=== PATIENT | male | born 1960 | race Caucasian/White ===

== ENCOUNTER 2017-10-08 09:44 | Emergency (ER) | payer OTHER ==
[2017-10-08 10:11] VITALS: BP 137/94
--- NOTE | 2017-10-08 11:56 | UC ---
Skin Complaint HPI - HPI Summary HPI Summary: diffusely spread honey draining rash on back thighs and upper lip. has had similar in the past treated with clindamycin with effect - History of Current Complaint Hx Obtained From: Patient Onset/Duration: Sudden Onset Onset Severity: Moderate Current Severity: Moderate Pain Intensity: 0 Location: Diffuse Character: Redness Aggravating Factor(s): Nothing Alleviating Factor(s): Nothing Associated Signs & Symptoms: Positive: Rash <Brea Lucero - Last Filed: 10/23/17 15:05> <Jena Wallace - Last Filed: 10/23/17 18:14> - History of Current Complaint Chief Complaint: UCRash Time Seen by Provider: 10/08/17 11:44 Stated Complaint: RASH - Allergy/Home Medications Allergies/Adverse Reactions: Allergies Allergy/AdvReac Type Severity Reaction Status Date / Time bee venom protein (honey bee) Allergy Hives Verified 10/08/17 10:11 HAYFEVER Allergy Mild Congestion Uncoded 08/22/15 11:03 Home Medications: Home Medications Asthmanex 2 puff INH DAILY 10/08/17 [History] Dulaglutide [Trulicity] 1 inj .SEE ORDER 10/08/17 [History] Review of Systems Constitutional: Negative Skin: Rash Eyes: Negative ENT: Negative Respiratory: Negative Cardiovascular: Negative Gastrointestinal: Negative Genitourinary: Negative Motor: Negative Neurovascular: Negative Musculoskeletal: Negative Neurological: Negative Psychological: Negative Is Patient Immunocompromised?: No All Other Systems Reviewed And Are Negative: Yes <Brea Lucero - Last Filed: 10/23/17 15:05> PMH/Surg Hx/FS Hx/Imm Hx Previously Healthy: No Endocrine History: Diabetes Cardiovascular History: Hypertension GI/ History: Gastroesophageal Reflux - Surgical History Surgical History: Yes Surgery Procedure, Year, and Place: Bilateral rotator cuff repair 1996/1999/ hernia repair x 2 - Family History Family History: NON CONTRIBUTORY - Social History Occupation: Employed Full-time Lives: With Family Alcohol Use: None Substance Use Type: None Smoking Status (MU): Never Smoked Tobacco - Immunization History Most Recent Tetanus Shot: UTD <Brea Lucero - Last Filed: 10/23/17 15:05> Physical Exam Triage Information Reviewed: Yes Appearance: Well-Appearing, No Pain Distress, Well-Nourished Vital Signs: Initial Vital Signs Temp 97.4 F 10/08/17 10:08 Pulse 81 10/08/17 10:08 Resp 18 10/08/17 10:08 BP 137/94 10/08/17 10:08 Pulse Ox 96 10/08/17 10:08 Vital Signs Reviewed: Yes Eye Exam: Normal Eyes: Positive: Conjunctiva Clear ENT Exam: Normal ENT: Positive: Normal ENT inspection, Hearing grossly normal. Negative: Trismus , Muffled voice, Hoarse voice, Dental tenderness, Sinus tenderness Dental Exam: Normal Neck exam: Normal Neck: Positive: Supple, Nontender Respiratory Exam: Normal Respiratory: Positive: Chest non-tender, No respiratory distress, No accessory muscle use Cardiovascular Exam: Normal Cardiovascular: Positive: RRR, No Murmur, Brisk Capillary Refill Musculoskeletal Exam: Normal Musculoskeletal: Positive: Strength Intact, ROM Intact, No Edema Neurological Exam: Normal Neurological: Positive: Alert, Muscle Tone Normal Psychological Exam: Normal Skin: Positive: rashes, Other - crusty yellow rash <Brea Lucero - Last Filed: 10/23/17 15:05> Vital Signs: Initial Vital Signs Temp 97.4 F 10/08/17 10:08 Pulse 81 10/08/17 10:08 Resp 18 10/08/17 10:08 BP 137/94 10/08/17 10:08 Pulse Ox 96 10/08/17 10:08 <Jena Wallace - Last Filed: 10/23/17 18:14> Course/Dx - Course Course Of Treatment: mild soap and water wash, clindamycin, follow rash and bp with pcp - Diagnoses Provider Diagnoses: staph infection, PMH hypertension <Brea Lucero - Last Filed: 10/23/17 15:05> Discharge - Sign-Out/Discharge Documenting (check all that apply): Discharge/Admit/Transfer - Billing Disposition and Condition Condition: STABLE Disposition: Home <Brea Lucero - Last Filed: 10/23/17 15:05> - Billing Disposition and Condition Condition: STABLE Disposition: Home <Jena Wallace - Last Filed: 10/23/17 18:14> - Discharge Plan Condition: Stable Disposition: HOME Prescriptions: Clindamycin Cap(NF) [Clindamycin Cap 300 mg Cap(NF)] 300 mg PO TID #21 cap Patient Education Materials: Folliculitis (ED), Warm Compress or Soak (ED) Referrals: Salvador Childs MD [Primary Care Provider] - If Needed Attestation Statement User Type: Provider - I was available for consult. This patient was seen by the JOELLEN. The patient was not presented to, seen by, or examined by me. -Josh <Jena Wallace - Last Filed: 10/23/17 18:14>
== END 2017-10-08 12:14 | disposition home or self-care (01) ==
LOC: UCEAST 09:44
DX: R21 Rash and other nonspecific skin eruption (principal); B95.8 Unspecified staphylococcus as the cause of diseases classified elsewhere; I10 Essential (primary) hypertension; E11.9 Type 2 diabetes mellitus without complications; Z79.84 Long term (current) use of oral hypoglycemic drugs; K21.9 Gastro-esophageal reflux disease without esophagitis; Z91.030 Bee allergy status
CPT/HCPCS: 99212; G0463

== ENCOUNTER 2017-12-08 15:58 | Emergency (ER) | payer OTHER ==
--- NOTE | 2017-12-08 16:25 | UC ---
Complaint Male HPI - HPI Summary HPI Summary: This patient is a 57 year old M [place] [facility] [place] a chief complaint of burning with urination and increased frequency since 1100 today. Pt states he is going frequently but states even after he passes urine he feels like he is nneds to go again. The patient rates the pain 3/10 in severity. Pt does not currenlty feel like retaining No rectal pain. No back pain. Patient denies fever, chills, n/v, incontinence, testicle pain, and penile discharge. No lesions. No concern for STDs. Hx of UTIs and the last one was 5 years ago. Pt states has diabetes so thinks "sometimes I get these when my sugars are high" No He sees Dr. Fuentes intermittently for his prostate. Patients medication reviewed this visit. NKDA. - History of Current Complaint Chief Complaint: UCGU Stated Complaint: UTI Time Seen by Provider: 12/08/17 16:09 Hx Obtained From: Patient Onset/Duration: Lasting Hours, Still Present Timing: Constant Severity Initially: Mild Severity Currently: Mild Pain Intensity: 3 Pain Scale Used: 0-10 Numeric Character: Burning Associated Signs And Symptoms: Positive: Dysuria. Negative: Fever, Nausea, Penile Discharge - Allergies/Home Medications Allergies/Adverse Reactions: Allergies Allergy/AdvReac Type Severity Reaction Status Date / Time bee venom protein (honey bee) Allergy Hives Verified 12/08/17 16:10 HAYFEVER Allergy Mild Congestion Uncoded 12/08/17 16:10 Home Medications: Home Medications Albuterol inh POWDER (NF) [Proair Respiclick] 108 mcg INH Q4H PRN 12/08/17 [ History Confirmed 12/08/17] PMH/Surg Hx/FS Hx/Imm Hx Endocrine History: Diabetes Cardiovascular History: Hypertension Respiratory History: Asthma GI/ History: Other Other GI/ History: BPH - Surgical History Surgical History: Yes Surgery Procedure, Year, and Place: Bilateral rotator cuff repair / hernia repair x 2 - Family History Known Family History: Positive: Diabetes Negative: Renal Disease, Seizure Disorder - Social History Occupation: Employed Full-time Lives: With Family Alcohol Use: Daily Substance Use Type: None Smoking Status (MU): Never Smoked Tobacco - Immunization History Most Recent Tetanus Shot: UTD Review of Systems Constitutional: Negative - fever Genitourinary: Dysuria, Frequency All Other Systems Reviewed And Are Negative: Yes Physical Exam - Summary Physical Exam Summary: Vital Signs Reviewed: Yes A+Ox3, no distress Eyes: Conjunctiva Clear BAILEY EOM intact and full ENT: Hearing grossly normal TM x2 clear mmoist no exudate, no erythema uvula midline neck: supple Respiratory: Positive: No respiratory distress, No accessory muscle use CTA throughout no w/r Cardiovascular: skin color reflect adequate perfusion RRR nl s1, s2 no m/r' abd soft + BS no guarding, no rebound no CVA b/l Musculoskeletal Exam: BABCOCK x 4 without difficulty Neurological: Positive: Alert, ambulatory without difficulty Psychological: Positive: Normal Response To Family Skin: Positive: no rash, no ecchymosis Triage Information Reviewed: Yes Vital Signs: Initial Vital Signs Temp 97.7 F 12/08/17 16:05 Pulse 79 12/08/17 16:05 Resp 18 12/08/17 16:05 BP 143/97 12/08/17 16:05 Pulse Ox 97 12/08/17 16:05 Complaint Male Course/Dx - Course Course Of Treatment: Blood pressure noted and patient informed to follow up with PCP. Patient presents with dysuria urgency that started today at approximately 11:00. Patient with history of UTI states this feels similar. Patient without fevers. Patient does not feel like she is retaining. No nausea vomiting. No CVA. Patient has had blood glucose concern. Patient is not having leukoesterase. Discussed with patient at length. Will start patient on amoxicillin. Patient will be given pyridium. Patient is taken this before with good relief. Patient recommended follow up with Dr. Fuentes. Strict return precautions discussed with patient. Patient states understanding and agreement with plan - Differential Dx/Diagnosis Provider Diagnoses: dysuria Discharge - Sign-Out/Discharge Documenting (check all that apply): Patient Departure - Discharge Plan Condition: Stable Disposition: HOME Prescriptions: Amoxicillin PO (*) [Amoxicillin 500 MG CAP*] 500 mg PO Q12H #20 cap Phenazopyridine TAB* [Pyridium 100 mg TAB*] 100 mg PO TID PRN #9 tab PRN Reason: burning with urination Patient Education Materials: Urinary Tract Infection in Men (ED) Referrals: Derrek Fuentes MD [Medical Doctor] - 1 Week (Please call Dr. Fuentes for follow up in one week. ) Additional Instructions: - stay well hydrated - drink plenty of non-alcoholic, non caffinated beverages - your urine will be further tested - if you require any changes to your treatment, we will contact you - this usually take 2 days - Take your antibiotics exactly as prescribed until gone - Take pyridium as prescribed for discomfort. This will make your urine blaze orange - this is normal - Okay to alternate ibuprofen (Advil, Motrin) and Tylenol every 3 hours for pain. Take with food Contact your urologist to arrange a follow-up appointment next week. Contact your doctor or return with questions or concerns - Billing Disposition and Condition Condition: STABLE Disposition: Home Attestation Statement Scribe Attestation: This is thang Dunlap documenting for attending Jena Wallace MD. User Type: Provider with Scribe Provider Attestation: The documentation recorded by the scribe accurately reflects the service I personally performed and the decisions made by me.
[2017-12-08 17:02] VITALS: BP 143/97
== END 2017-12-08 16:42 | disposition home or self-care (01) ==
LOC: UCEAST 15:58
DX: R30.0 Dysuria (principal); E11.9 Type 2 diabetes mellitus without complications; I10 Essential (primary) hypertension; J45.909 Unspecified asthma, uncomplicated; N40.0 Benign prostatic hyperplasia without lower urinary tract symptoms; Z91.09 Other allergy status, other than to drugs and biological substances; Z91.030 Bee allergy status
CPT/HCPCS: 81003; 87077; 87086; 87186; 99212; G0463

== ENCOUNTER 2018-04-23 13:52 | Emergency (ER) | payer OTHER ==
[2018-04-23 14:01] VITALS: BP 137/94
--- NOTE | 2018-04-23 14:08 | UC ---
Skin Complaint HPI - HPI Summary HPI Summary: 57-year-old male 57-year-old male comes to clinic today with a chief complaint of redness and pain left lower leg. Started in the last couple of days. Started down the good medial aspect. Mild pain worse with palpation. Better with Not touching. The redness is on the good and he also has some redness on the medial aspect of his lower inner thigh. No fevers or chills he does have type 2 diabetes reports his sugars are well-controlled in the 120s. Feels well otherwise. He did hit his lower leg some time ago in the same area. No calf pain or posterior leg pain. - History of Current Complaint Chief Complaint: UCGeneralIllness Time Seen by Provider: 04/23/18 14:02 Stated Complaint: L LEG PAIN Pain Intensity: 2 - Allergy/Home Medications Allergies/Adverse Reactions: Allergies Allergy/AdvReac Type Severity Reaction Status Date / Time bee venom protein (honey bee) Allergy Hives Verified 04/23/18 14:00 HAYFEVER Allergy Mild Congestion Uncoded 04/23/18 14:00 Home Medications: Home Medications Sitagliptin Phosphate [Januvia] 100 mg PO DAILY 04/23/18 [History Confirmed ] PMH/Surg Hx/FS Hx/Imm Hx Previously Healthy: Yes Endocrine History: Diabetes Cardiovascular History: Hypertension Respiratory History: Asthma - Surgical History Surgical History: Yes Surgery Procedure, Year, and Place: Bilateral rotator cuff repair / hernia repair x 2 - Family History Known Family History: Positive: Diabetes Negative: Renal Disease, Seizure Disorder - Social History Alcohol Use: Occasionally Substance Use Type: None Smoking Status (MU): Never Smoked Tobacco - Immunization History Most Recent Tetanus Shot: UTD Review of Systems All Other Systems Reviewed And Are Negative: Yes Constitutional: Positive: Negative Skin: Positive: Rash Eyes: Positive: Negative ENT: Positive: Negative Respiratory: Positive: Negative Cardiovascular: Positive: Negative Gastrointestinal: Positive: Negative Motor: Positive: Negative Neurovascular: Positive: Negative Musculoskeletal: Positive: Negative Neurological: Positive: Negative Psychological: Positive: Negative Is Patient Immunocompromised?: No Physical Exam Triage Information Reviewed: Yes Appearance: Well-Appearing, No Pain Distress, Well-Nourished Vital Signs: Initial Vital Signs Temp 98 F 04/23/18 13:57 Pulse 77 04/23/18 13:57 Resp 17 04/23/18 13:57 BP 137/94 04/23/18 13:57 Pulse Ox 98 04/23/18 13:57 Vital Signs Reviewed: Yes Eye Exam: Normal Eyes: Positive: Conjunctiva Clear Neck exam: Normal Neck: Positive: Supple Respiratory: Positive: No respiratory distress Musculoskeletal Exam: Normal Musculoskeletal: Positive: Strength Intact, ROM Intact, No Edema, Other: - NO CALF TENDERNESS Neurological Exam: Normal Neurological: Positive: Alert, Muscle Tone Normal Psychological Exam: Normal Psychological: Positive: Age Appropriate Behavior Skin Exam: Normal Skin: Positive: Other - Patient has a flat flat erythematous patch that blanches on the medial aspect of the left good it's 10 Cm by 4 cm. The second same blanching patch distal medial inner thigh 6 cm x 3 cm. Both these areas are mildly tender to palpation. The calf is nontender to palpation. Course/Dx - Course Course Of Treatment: I discussed with the patient I discussed with the patient if he got worse he needs to get rechecked right away AND should go to the emergency department if he does get worse. - Diagnoses Provider Diagnosis: Cellulitis of left leg Discharge - Sign-Out/Discharge Documenting (check all that apply): Patient Departure All imaging exams completed and their final reports reviewed: No Studies - Discharge Plan Condition: Stable Disposition: HOME Prescriptions: Cephalexin CAP* [Keflex CAP*] 500 mg PO QID #40 cap Patient Education Materials: Cellulitis (ED) Referrals: Salvador Childs MD [Primary Care Provider] - Additional Instructions: FOLLOW UP WITH YOUR DOCTOR. GO TO THE EMERGENCY DEPARTMENT FOR ANY WORSENING OF YOUR CONDITION; FEVER, SPREAD OF INFECTION, YOU FEEL ILL OR QUESTIONS OR CONCERNS. - Billing Disposition and Condition Condition: STABLE Disposition: Home
== END 2018-04-23 14:11 | disposition home or self-care (01) ==
LOC: UCEAST 13:52
DX: L03.116 Cellulitis of left lower limb (principal); Z88.8 Allergy status to other drugs, medicaments and biological substances; E11.9 Type 2 diabetes mellitus without complications; I10 Essential (primary) hypertension
CPT/HCPCS: 99212; G0463

== ENCOUNTER 2022-03-14 08:20 | Inpatient (IN) ==
[~2022-03-14 08:20] MED LIST: Buffered Lidocaine 1% SYRIN 1 ml INTRADERM ONE; Lactated Ringers 1000 ml BAG 1,000 ML IV SCH
[2022-03-14] MEDS ORDERED: ceFAZolin 2 GM PREMIX 2 GM/50 ML BAG ONE (08:34)
[2022-03-14 08:57] LABS: INR 1.13 (0.89-1.11)
[2022-03-14] MEDS ORDERED: Propofol 10 MG/ML 20 ML BTL ONE ×2 (09:25→11:51)
[2022-03-14] MEDS ORDERED: Lidocaine 2% PF 5 ML VIAL ONE (09:26)
[2022-03-14] MEDS ORDERED: Midazolam 2 mg/2 ml VIAL 1 mg/ml 2 ml VIAL (2 mg) ONE (09:26)
[2022-03-14] MEDS ORDERED: Ketamine HCL 50 mg/ml 10 ml VIAL (500 MG) ONE (09:30)
[2022-03-14] MEDS ORDERED: fentaNYL 100 mcg/2 ml 50 MCG/ML VIAL ONE (11:15)
[2022-03-14] MEDS ORDERED: Acetaminophen IV 1 GM/100ML 1,000 MG/100 ML BAG IV ONE (11:38)
[2022-03-14] MEDS ORDERED: Glycopyrrolate IV 0.2 MG/ML 1 ML VIAL ONE (11:52)
[2022-03-14] MEDS ORDERED: Ondansetron 4 mg VIAL 2 MG/ML 2 ml VIAL ONE (12:09)
[2022-03-14] MEDS ORDERED: Metoclopramide 5 MG/ML VIAL (10 mg) IV PRN (14:13)
[2022-03-14] MEDS ORDERED: Naloxone 0.4 mg VIAL 0.4 mg/ml 1 ml VIAL IV PRN (14:13)
[2022-03-14] MEDS ORDERED: HYDROmorphone 1 MG/1 ML SYRINGE IV PRN (14:13)
[2022-03-14] MEDS ORDERED: Lactulose 30 ml UDC PO PRN (14:14)
[2022-03-14] MEDS ORDERED: Ondansetron ODT 4 mg TAB 4 MG TAB PO PRN (14:14)
[2022-03-14] MEDS ORDERED: Ondansetron 4 mg VIAL 2 MG/ML 2 ml VIAL IV PRN (14:14)
[2022-03-14] MEDS ORDERED: Magnesium Hydroxide LIQ 30 ML UDC PO PRN (14:14)
[2022-03-14] MEDS ORDERED: Morphine 2 MG/ML SYRINGE IV PRN (14:14)
[2022-03-14] MEDS ORDERED: Albuterol HFA INHALER 8 gm MDI INH PRN (15:18)
[2022-03-14] MEDS ORDERED: Dextrose 50% Syringe 50 ml 25 GM/50 ML SYRINGE IV PUSH PRN (15:21)
[2022-03-14] MEDS: Lactated Ringers 1000 ml BAG 1,000 ML IV SCH (15:46)
[2022-03-14] MEDS ORDERED: NS 0.9% 1,000 ML IV ONE (18:45)
[2022-03-14] MEDS: ceFAZolin 1 GM ADVAN 1 GM in NS 0.9% 50 ML 50 ML IVPB SCH (19:30)
[2022-03-14] MEDS: Magnesium Hydroxide LIQ 30 ML UDC PO SCH (21:11)
[2022-03-15] MEDS: Lactated Ringers 1000 ml BAG 1,000 ML IV SCH (03:17)
[2022-03-15] MEDS: ceFAZolin 1 GM ADVAN 1 GM in NS 0.9% 50 ML 50 ML IVPB SCH ×2 (03:19→11:09)
[2022-03-15 06:12] LABS: Hematocrit 38 % (42-52); Hemoglobin 12.3 g/dL (14.0-18.0); Mean Platelet Volume 8.1 fL (7.4-10.4); Platelet Count 201 10^3/uL (150-450)
[2022-03-15 06:32] LABS: Calcium 7.6 mg/dL (8.6-10.3); Potassium 3.2 mmol/L (3.5-5.0); eGFR CKD-EPI 87.2 (>60)
[2022-03-15] MEDS: Magnesium Hydroxide LIQ 30 ML UDC PO SCH (08:37)
[2022-03-15] MEDS ORDERED: Vitamin THERAPEUTIC TAB PO SCH (09:00)
[2022-03-15] MEDS ORDERED: Potassium Chlor 20 meq TAB.ER PO ONE (09:15)
[2022-03-15 09:25] LABS: Magnesium 1.5 mg/dL (1.9-2.7)
[2022-03-15 11:10] VITALS: BP 136/84
== END 2022-03-15 13:00 | disposition home or self-care (01) | DRG 470 ==
LOC: INTOOBSV 08:20 → AA 08:20 → SSU 15:39
PROVIDERS: ADMIT Orthopaedic Surgery Adult Reconstructive Orthopaedic Surgery; ATTEND Orthopaedic Surgery Adult Reconstructive Orthopaedic Surgery